=== PATIENT | female | born 1950 | race Caucasian/White ===

== ENCOUNTER → 2016-09-30 | Outpatient (CLI) | payer MEDICARE, BC | LOC: LAB 11:54 | DX: N34.2 Other urethritis (principal) ==

== ENCOUNTER 2020-05-16 13:25 | Emergency (ER) | payer MEDICARE, OTHER ==
[~2020-05-16] VITALS: Wt 78.0 kg
[2020-05-16] MEDS ORDERED: SYNTHROID RP0.088 MG PO (13:36)
[2020-05-16] MEDS ORDERED: ASPIRIN E.C. 8181 MG (13:36)
[2020-05-16] MEDS ORDERED: OMEPRAZOLE40 MG PO (13:36)
[2020-05-16] MEDS ORDERED: NIACIN500 M5 PO (13:36)
[2020-05-16] MEDS ORDERED: CRESTOR20 MG PO (13:36)
[2020-05-16] MEDS ORDERED: CARAFATE (13:37)
[2020-05-16 14:05] LABS: EOS # 0.1 (0.04-0.40); EOS % 1.5 % (1.0-5.0); HEMATOCRIT 42.6 % (37.0-47.0); HEMOGLOBIN 13.7 g/dL (12.5-16.0); LYMPH# 1.5 (1.50-4.00); MEAN CELL VOLUME 92 fl (78-100); MEAN CORPUSCULAR HEMOGLOBIN 30 pg (27-31); MEAN CORPUSCULAR HGB CONC 32 g/dL (33-37); MONO # 0.6 (0.20-0.80); NEU # 4.5 (1.40-6.50); PLATELET COUNT 248 K/mm3 (130-400); RED BLOOD COUNT 4.62 M/mm3 (4.10-5.30); RED CELL DISTRIBUTION WIDTH 12.8 % (11.5-14.5); WHITE BLOOD COUNT 6.7 K/mm3 (4.8-10.8)
[2020-05-16 14:15] LABS: ALBUMIN 4.3 g/dL (3.4-4.8); POTASSIUM 3.9 mmol/L (3.5-5.1); SODIUM 138 mmol/L (136-145)
[2020-05-16 14:16] LABS: CALCIUM 9.5 mg/dL (8.3-10.5)
[2020-05-16 14:17] LABS: GLUCOSE 218 mg/dL (65-105); TOTAL PROTEIN 7.4 g/dL (6.2-8.1)
[2020-05-16 14:18] LABS: CARBON DIOXIDE 25 mmol/L (23-31); D-DIMER 0.52 mg/L FEU (0.15-0.50)
[2020-05-16 14:19] LABS: TOTAL BILIRUBIN 0.4 mg/dL (0.2-1.2)
[2020-05-16 14:23] LABS: AST-SGOT 91 U/L (5-34)
[2020-05-16 14:24] LABS: ALT/SGPT 66 U/L (0-55)
[2020-05-16 14:32] LABS: TROPONIN-I < 0.03 ng/mL (<0.030)
[2020-05-16 15:45] VITALS: BP 152/79
== END 2020-05-16 15:45 | disposition home or self-care (01) ==
LOC: ED 13:25
PROVIDERS: Family Medicine
DX: R00.2 Palpitations (principal); E11.65 Type 2 diabetes mellitus with hyperglycemia; E03.9 Hypothyroidism, unspecified; E78.5 Hyperlipidemia, unspecified; K21.9 Gastro-esophageal reflux disease without esophagitis; Z20.822 Contact with and (suspected) exposure to COVID-19; Z90.710 Acquired absence of both cervix and uterus; Z90.49 Acquired absence of other specified parts of digestive tract; Z79.82 Long term (current) use of aspirin; Z79.890 Hormone replacement therapy

== ENCOUNTER → 2020-10-26 | Outpatient (CLI) | payer MEDICARE, OTHER ==
[~2020-10-26] MED LIST: ASPIRIN E.C. 8181 MG; CARAFATE; CRESTOR20 MG PO; NIACIN500 M5 PO; OMEPRAZOLE40 MG PO; SYNTHROID RP0.088 MG PO
== END ==
LOC: LAB 07:56
DX: R30.9 Painful micturition, unspecified (principal)

== ENCOUNTER → 2021-06-02 | Outpatient (CLI) | payer MEDICARE, OTHER | LOC: MAMMO 08:41 | DX: Z12.31 Encounter for screening mammogram for malignant neoplasm of breast (principal) ==

== ENCOUNTER 2021-09-21 09:20 | Outpatient (RCR) | payer MEDICARE, OTHER | END 2021-10-07 | disposition home or self-care (01) | LOC: PT | DX: M25.551 Pain in right hip (principal) ==

== ENCOUNTER → 2021-12-31 | Outpatient (CLI) | payer MEDICARE, OTHER | LOC: LAB 10:37 | DX: Z20.822 Contact with and (suspected) exposure to COVID-19 (principal) ==

== ENCOUNTER → 2022-06-02 | Outpatient (CLI) | payer MEDICARE, OTHER | LOC: MAMMO 08:30 | DX: Z12.31 Encounter for screening mammogram for malignant neoplasm of breast (principal); N64.89 Other specified disorders of breast ==

== ENCOUNTER → 2022-06-06 | Outpatient (CLI) | payer MEDICARE, OTHER | LOC: MAMMO 06:56 | DX: N60.02 Solitary cyst of left breast (principal) ==

== ENCOUNTER 2023-04-12 10:47 | Outpatient (RCR) | payer MEDICARE, OTHER | END 2023-05-03 09:27 | disposition home or self-care (01) | LOC: OT 10:47 | DX: M25.512 Pain in left shoulder (principal) ==

== ENCOUNTER 2023-04-25 08:47 | Outpatient (RCR) | payer MEDICARE, OTHER | END 2023-05-10 17:33 | disposition home or self-care (01) | LOC: OPPGERO 08:47 | DX: F43.23 Adjustment disorder with mixed anxiety and depressed mood (principal) ==

== ENCOUNTER → 2023-05-30 | Outpatient (CLI) | payer MEDICARE, OTHER | LOC: LAB 08:12 | DX: J01.90 Acute sinusitis, unspecified (principal); Z20.822 Contact with and (suspected) exposure to COVID-19 ==

== ENCOUNTER → 2023-06-06 | Outpatient (CLI) | payer MEDICARE, OTHER | LOC: MAMMO 10:18 | DX: Z12.31 Encounter for screening mammogram for malignant neoplasm of breast (principal) ==